=== PATIENT | male | born 1975 | race Two or more races ===

== ENCOUNTER 2025-11-02 11:11 | Emergency (ER) | payer BC ==
[~2025-11-02] VITALS: Ht 175.3 cm; Wt 88.5 kg
[2025-11-02] MEDS ORDERED: 0.9 % SODIUM CHLORIDE 1,000 ML IV ONE (13:15)
[2025-11-02] MEDS ORDERED: MORPHINE SULFATE 4 MG/ML CARTRIDGE IV ONE (13:15)
[2025-11-02 13:51] LABS: BASO % 0.9 % (0.1-1.2); EOS # 0.05 (0.04-0.54); EOS % 1.2 % (0.7-7.0); LYMPH # 1.67 (1.18-3.74); LYMPH % 38.6 % (19.3-53.1); MEAN PLATELET VOLUME 10.90 fl (9.4-12.4); MONO # 0.30 (0.24-0.82); MONO % 6.9 % (4.7-12.5); NEUT # 2.26 (1.56-6.13); NEUT % 52.2 % (34.0-71.1); RED CELL DISTRIBUTION WIDTH 12.6 % (11.6-14.4)
[2025-11-02] MEDS ORDERED: KETOROLAC TROMETHAMINE 30 MG VIAL ONE ×2 (14:01→20:04)
[2025-11-02] MEDS ORDERED: KETOROLAC TROMETHAMINE 30 MG VIAL IV ONE ×2 (14:15→20:15)
[2025-11-02 14:26] LABS: INR 1.06
[2025-11-02 14:35] LABS: ALT/SGPT 21 U/L (12-78); AST/SGOT 19 U/L (15-37); BILIRUBIN TOTAL 0.86 mg/dL (0.3-1.2); BUN CREA RATIO 15 (7.0-25.0); CREATININE SERUM 0.99 mg/dL (0.70-1.30); GFR 79.69; GLOBULINA 3.8 G/DL (2.4-3.5); GLUCOSE FASTING 94 mg/dL (65-100); OSMOLALITY SERUM 286 MOSM/KG (275-295)
[2025-11-02 15:31] LABS: URINE APPEARANCE Clear; URINE BILIRRUBIN Negative (NEGATIVE); URINE BLOOD Negative; URINE COLOR Yellow; URINE GLUCOSE Negative (NEGATIVE); URINE KETONE Negative (NEGATIVE); URINE LEUKOCYTE Negative; URINE NITRATE Negative; URINE PROTEIN Negative (NEGATIVE); URINE UROBILINOGEN 0.2 E.U./dl
[2025-11-02 16:00] LABS: URINE BACTERIA 0 uL (0.0-1933); URINE CAST 0.00 uL (0.0-1.40); URINE EPITHELIAL CELLS 0.0 uL (0.0-38.8); URINE RBC 0.2 uL (0.0-20.8); URINE WBC 0.5 uL (0.0-23.2)
[2025-11-02] MEDS ORDERED: DEXAMETHASONE SODIUM PHOSPHATE 4 MG/ML VIAL ONE (20:04)
[2025-11-02] MEDS ORDERED: DEXAMETHASONE SODIUM PHOSP/PF 10 MG/ML VIAL IV ONE (20:15)
[2025-11-02] MEDS ORDERED: KETO10TA2 PO (23:23)
== END 2025-11-02 23:50 | disposition home or self-care (01) ==
LOC: EDBD 11:12 → ER 11:12
DX: N43.2 Other hydrocele (principal); K40.90 Unilateral inguinal hernia, without obstruction or gangrene, not specified as recurrent; Z91.013 Allergy to seafood